=== PATIENT | male | born 1950 | race Hispanic/Latino ===

== ENCOUNTER 2017-06-01 14:07 | Outpatient (CLI) | payer MEDICARE ==
--- NOTE | 2017-06-01 16:57 | ULT ---
RENAL SONOGRAM: 06/01/17 HISTORY: Renal cyst. Followup. COMPARISON: 10/19/15. FINDINGS: On today's exam, the right kidney is 10.6 mm in length and contains a 1.4 cm cyst at the mid cortex. No hydronephrosis is evident. The urinary bladder is unremarkable. The left kidney is 10.2 cm in le ngth and has a normal appearance. IMPRESSION: Small right renal cyst has enlarged slightly since the prior study. No new abnormalities are apparen t. POS: JOSE
== END 2017-06-01 14:08 | disposition home or self-care (01) ==
LOC: ULT 14:07
PROVIDERS: ATTEND Urology
DX: N18.9 Chronic kidney disease, unspecified (principal); Q61.01 Congenital single renal cyst; N35.9 Urethral stricture, unspecified
CPT/HCPCS: 76770

== ENCOUNTER 2018-05-25 08:50 | Outpatient (CLI) | payer MEDICARE ==
[2018-05-25 10:12] LABS: Hemoglobin 11.7 g/dL (14.0-18.0); Mean Corpuscular HGB CONC 31.8 g/dL (32.0-36.0); Mean Corpuscular Hemoglobin 26.9 pg (27.0-31.0); Mean Corpuscular Volume 84.5 fL (78.0-98.0); Platelet Count 256 thou/uL (130-400); Red Blood Cell (RBC) Count 4.34 mill/uL (4.70-6.10)
[2018-05-25 10:19] LABS: Bilirubin Negative (Negative); Blood, Urine Negative (Negative); Clarity CLEAR (Clear); Glucose, Urine (Dipstick) 100 mg/dL (Negative); Leukocyte Negative (Negative); Nitrite Negative (Negative); Protein, Urine (Dipstick) 100 mg/dL (Neg-Trace); Prothrombin Time 13.7 SEC (12.0-14.7); Specific Gravity, Urine 1.016 (1.002-1.036); Urobilinogen 0.2 mg/dL (0.2-1.0)
[2018-05-25 10:20] LABS: PTT 35.5 SEC (22.9-36.1)
[2018-05-25 10:25] LABS: Bacteria/HPF None Seen HPF (None Seen); Hyaline Casts/LPF 0-3 HYALINE CAST LPF (0-3 Hyaline); Squamous Epithelial 0-3 HPF (0-3); WBC/HPF 0-3 HPF (0-3)
[2018-05-25 10:33] LABS: Anion Gap 11 mmol/L (10-20); BUN (Urea Nitrogen) 27 mg/dL (8.4-25.7); Calc. Creatinine Clearance 0 mL/min (70-130); Calcium 9.2 mg/dL (7.8-10.44); Carbon Dioxide 24 mmol/L (23-31); Chloride 107 mmol/L (98-107); Estimated GFR-MDRD 33; Glucose 141 mg/dL (80-115); Potassium 4.4 mmol/L (3.5-5.1); Sodium 138 mmol/L (136-145)
== END 2018-05-25 08:51 | disposition home or self-care (01) ==
LOC: LABBT 08:50
PROVIDERS: ATTEND Urology
DX: Z01.818 Encounter for other preprocedural examination (principal); N40.1 Benign prostatic hyperplasia with lower urinary tract symptoms; N39.9 Disorder of urinary system, unspecified
CPT/HCPCS: 80048; 81001; 85027; 85610; 85730; 87086; 93005; 93010

== ENCOUNTER 2018-06-06 05:36 | Observation (INO) | payer MEDICARE ==
[2018-05-25 09:07] VITALS: BMI 27.8
[2018-06-06] MEDS ORDERED: Fentanyl 100 MCG/2 ML VIAL ONE ×2 (06:38→09:24)
[2018-06-06] MEDS ORDERED: Levofloxacin 500 mg/D5W 100 ml Premix Bag ONE (06:41)
[2018-06-06] MEDS ORDERED: Ondansetron PF 4 MG/2 ML Vial ONE (08:11)
[2018-06-06] MEDS ORDERED: Lidocaine 1% PF 5 ML VIAL ONE (08:11)
[2018-06-06] MEDS ORDERED: ePHEDrine/0.9% NaCl/PF SYRINGE 50 mg/10 ml ONE (08:11)
[2018-06-06] MEDS ORDERED: Glycopyrrolate 0.2 MG/ML 5 ML SYRINGE ONE (08:11)
[2018-06-06] MEDS ORDERED: PROPOFOL 200 MG/20 ML VIAL ONE (08:11)
[2018-06-06] MEDS ORDERED: Dextrose 50% Abboject 50 ML SYRINGE SLOW IVP PRN (09:26)
[2018-06-06] MEDS ORDERED: diphenhydrAMINE 50 MG/ML VIAL IVP PRN (09:26)
[2018-06-06] MEDS ORDERED: Zolpidem Tartrate 5 MG TAB PO PRN (09:26)
[2018-06-06] MEDS ORDERED: HYDROcodone/Acetaminophen 5/325 mg Tablet PO PRN (09:26)
[2018-06-06] MEDS ORDERED: Oxybutynin 5 MG TAB PO PRN (09:26)
[2018-06-06] MEDS ORDERED: Insulin Regular 300 UNITS/3 ML VIAL SC PRN (09:26)
[2018-06-06] MEDS ORDERED: Acetaminophen 500 MG TAB PO PRN (09:26)
[2018-06-06] MEDS ORDERED: Mag-Al 1200 mg/1200 mg/30 ML UDCUP PO PRN (09:26)
[2018-06-06] MEDS ORDERED: hydrALAZINE 20 MG/ML VIAL SLOW IVP PRN ×2 (09:26)
[2018-06-06] MEDS ORDERED: Dextrose 5% in Water 1,000 ML IV PRN (09:26)
[2018-06-06] MEDS ORDERED: Sodium Chloride 0.9% 1,000 ML IV SCH (09:30)
[2018-06-06 09:56] LABS: #Eosinphils 0.4 thou/uL (0.0-0.7); #Lymphocytes 3.1 thou/uL (1.20-3.40); #Monocytes 0.8 thou/uL (0.11-0.59); #Neutrophils 5.3 thou/uL (1.40-6.50); %Basophils 0.4 % (0.0-1.0); %Eosinophils 3.8 % (0.0-10.0); %Lymphocytes 32.2 % (21.0-51.0); %Monocytes 8.7 % (0.0-10.0); %Neutrophils 54.9 % (42.0-75.0); Mean Corpuscular HGB CONC 30.7 g/dL (32.0-36.0); Mean Corpuscular Hemoglobin 26.1 pg (27.0-31.0); Mean Platelet Volume 7.3 fL (7.4-10.4); Platelet Count 302 thou/uL (130-400); RBC Distribution Width 12.1 % (11.5-14.5); Red Blood Cell (RBC) Count 4.22 mill/uL (4.70-6.10); White Blood Cell (WBC) Count 9.6 thou/uL (4.8-10.8)
[2018-06-06 10:16] LABS: Anion Gap 9 mmol/L (10-20); BUN (Urea Nitrogen) 26 mg/dL (8.4-25.7); Calc. Creatinine Clearance 46 mL/min (70-130); Calcium 8.3 mg/dL (7.8-10.44); Carbon Dioxide 25 mmol/L (23-31); Chloride 109 mmol/L (98-107); Estimated GFR-MDRD 37; Glucose 108 mg/dL (80-115); Potassium 4.5 mmol/L (3.5-5.1); Sodium 138 mmol/L (136-145)
[2018-06-06] MEDS ORDERED: HYDROmorphone 2 MG/ML VIAL ONE (10:58)
[2018-06-06] MEDS ORDERED: Morphine 4 MG/ML VIAL ONE (12:10)
--- NOTE | 2018-06-06 12:31 | OP ---
DATE OF PROCEDURE: 06/06/2018 PREOPERATIVE DIAGNOSES: A 67-year-old male with, 1. History of proximal penile stricture, approximately 14-16 Montenegrin caliber, wide caliber bulbar str icture. 2. Moderate benign prostatic hyperplasia, bilobar hyperplasia, high median bar. POSTOPERATIVE DIAGNOSES: A 67-year-old male with, 1. History of proximal penile stricture, approximately 14-16 Montenegrin caliber, wide caliber bulbar str icture. 2. Moderate benign prostatic hyperplasia, bilobar hyperplasia, high median bar. PROCEDURE: Cystoscopy, direct vision internal urethrotomy, transurethral resection of prostate. SURGEON: Keyla Sosa D.O. ANESTHESIA: General. IV FLUIDS: Approximately 1 liter. ESTIMATED BLOOD LOSS: Approximately 50 mL. SPECIMEN: TUR prostate. INDICATIONS FOR THE PROCEDURE AND HISTORY: Mr. Key is a 67-year-old male with history o f diabetes, coronary artery disease, BPH, urethral stricture. The patient presents today for DVIU, T URP. The patient is somewhat of a poor historian. I have been monitoring his peak flow PVR. A stag ing cystoscopy demonstrates recurrence of his urethral stricture with moderately obstructing prostate , he desired to proceed with TURP concomitantly with direct vision internal urethrotomy. Risks and c omplications of the procedure were reviewed with him in detail including, but not limited to, bleedin g, pain, infection, injury to adjacent organs, urosepsis. He has been fully informed regarding ureth ral stricture recurrence. I did discuss with him regarding options of urethroplasty. I did have binu e concerns as he tends to be noncompliant, as urethroplasty is a more involved procedure. He is in f ull understanding that his prostatic urethral stricture will likely recur; however, desired to procee d with DVIU with concomitant TURP. Cardiology clearance is in chart. He desired to proceed without reservation. Risks and complications including, but not limited to, bleeding, pain, infection, injur y to adjacent organs, urosepsis, recurrent nature of stricture disease, bladder neck contracture, junie t retention, incontinence, ureteral bladder injury reviewed. DESCRIPTION OF THE PROCEDURE: After an informed consent is signed, the patient is taken to the opera ting room, placed in a dorsal lithotomy position with the genital area prepped and draped in the usua l surgical sterile fashion. A bilateral KACI hose, SCDs, and broad-spectrum antibiotics were provided . A 21-Montenegrin cystoscope was utilized. We staged the urethral stricture with a rigid cystoscope, wh ich demonstrated again a soft-appearing proximal penile urethral stricture, approximately 14-16 Frenc h caliber. I was able to pass this with the cystoscope without significant issues. There is a wide caliber bulbar stricture not warranting treatment. It was passively dilated with passing the scope. The prostatic urethra was entered demonstrating moderately obstructing lateral lobes. His prostate is not significantly enlarged on a volume of approximately [address] He does, however, have a tight bladder neck and obstructing lateral lobes. The bladder was entered, which demonstrated normal bladder mucosa with significant bladder tumor, trabeculations, stones of concern. UOs were bilatera lly away from the bladder neck and kept out of harm's way throughout the procedure. At this time, we did transition to an [facility] DVIU scope with a cold knife. We released the proximal penile stricture a nd this released nicely with 1 swipe. At this time, a 26-Montenegrin continuous sheath resectoscope was p laced under direct visualization. I did dilate his meatus with Karen sounds to 30-Montenegrin without difficulty and the scope was able to be passed without significant issues under direct visualization . Using gyrus bipolar, we performed a transurethral resection of prostate in a classic Amy fasneo n. His prostate demonstrated changes consistent with chronic prostatitis. There were intermittent a reas of little microabscesses that were released with TUR of the prostate. He did have a very friabl e vascular prostate and we obtained hemostasis intermittently throughout the procedure. There was a prominent vessel in the anterior bladder neck, which we cauterized successfully with no subsequent bl eed. The bladder neck, at the end of the procedure was wide open with resolution of his laterally ob structing nodes. His left lateral lobe was somewhat too thin. Therefore, I did not further pursue t his area. All prostatic chips were evacuated with the Jennifer evacuator. We observed his prostatic ur ethra with no pressure and flow demonstrating no active bleeding. At this time, a 0.35 Super Stiff w camila was placed to the level of the bladder and a 22-Montenegrin three-way Gavin catheter was passed under guidewire assist. A 30 mL insufflated with sterile water attached to gravity bag and a slow CBI emmanuelle r output noted. He will be monitored overnight. If his urine output has remained clear, with CBI he ld tomorrow morning, I anticipate he will be discharged tomorrow morning with catheter to gravity bag .
[2018-06-06] MEDS: Gabapentin 300 MG CAP PO SCH ×2 (14:20→22:09)
[2018-06-06] MEDS: HYDROcodone/Acetaminophen 5/325 mg Tablet PO PRN (14:20)
[2018-06-06] MEDS: hydrALAZINE 25 MG TAB PO SCH ×2 (14:21→22:10)
[2018-06-06] MEDS ORDERED: Ondansetron PF 4 MG/2 ML Vial IVP PRN (14:44)
[2018-06-06] MEDS ORDERED: Promethazine HCl 25 MG in Sodium Chloride 0.9% 50 ML IVPB PRN (17:50)
[2018-06-06] MEDS: Dextrose 5 % And 0.9 % NaCl 1,000 ML IV SCH (18:16)
[2018-06-06] MEDS ORDERED: Insulin Glargine 48 UNITS in Pre-Filled Syringe 1 EACH SC SCH (21:00)
[2018-06-06] MEDS: Docusate 100 MG CAP PO SCH (22:09)
[2018-06-06] MEDS: Carvedilol 6.25 MG TAB PO SCH (22:09)
[2018-06-06] MEDS: Famotidine/PF 20 mg/2ml Vial SLOW IVP SCH (22:09)
[2018-06-07] MEDS: Dextrose 5 % And 0.9 % NaCl 1,000 ML IV SCH (02:57)
[2018-06-07 05:51] LABS: #Eosinphils 0.2 thou/uL (0.0-0.7); #Lymphocytes 3.3 thou/uL (1.20-3.40); #Monocytes 1.2 thou/uL (0.11-0.59); #Neutrophils 8.7 thou/uL (1.40-6.50); %Basophils 0.3 % (0.0-1.0); %Eosinophils 1.3 % (0.0-10.0); %Lymphocytes 24.9 % (21.0-51.0); %Monocytes 8.6 % (0.0-10.0); %Neutrophils 64.9 % (42.0-75.0); Hemoglobin 10.5 g/dL (14.0-18.0); Mean Corpuscular HGB CONC 31.4 g/dL (32.0-36.0); Mean Corpuscular Hemoglobin 26.7 pg (27.0-31.0); Mean Corpuscular Volume 85.1 fL (78.0-98.0); Mean Platelet Volume 7.6 fL (7.4-10.4); Platelet Count 287 thou/uL (130-400); RBC Distribution Width 12.2 % (11.5-14.5); Red Blood Cell (RBC) Count 3.95 mill/uL (4.70-6.10); White Blood Cell (WBC) Count 13.4 thou/uL (4.8-10.8)
[2018-06-07 06:23] LABS: Anion Gap 8 mmol/L (10-20); BUN (Urea Nitrogen) 21 mg/dL (8.4-25.7); Calc. Creatinine Clearance 42 mL/min (70-130); Calcium 8.3 mg/dL (7.8-10.44); Carbon Dioxide 25 mmol/L (23-31); Chloride 109 mmol/L (98-107); Estimated GFR-MDRD 33; Glucose 138 mg/dL (80-115); Potassium 4.1 mmol/L (3.5-5.1); Sodium 138 mmol/L (136-145)
[2018-06-07] MEDS ORDERED: Sodium Chloride 0.9% 1,000 ML IV SCH (08:00)
--- NOTE | 2018-06-07 08:11 | PRG ---
DATE OF SERVICE: 06/07/2018 SUBJECTIVE: The patient awake, denies nausea at this time, states that he is hungry. Last night he had an episode of emesis, was provided Zofran and Phenergan with no subsequent emesis. CBI was held this morning at 5. PHYSICAL EXAMINATION: VITAL SIGNS: Stable at 98, 72, 83, 93, 132/61. I's and O's yesterday had 850 mL of emesis. Urine o utput 2650. CBI held. GENITOURINARY: Urine output light red tinged, no clots. CBI flushed with immediate clearing. LABORATORY DATA: White blood cell count 13, hemoglobin 10.5, platelet 287. Renal function 21, creat inine 2.02, which is near his baseline. Pathology pending. IMPRESSION AND PLAN: A 67-year-old male with history of coronary artery disease, diabetes, benign pr ostatic hypertrophy, urethral stricture, postop day #1 status post DVIU, transurethral resection of p rostate. We will continue to hold the CBI today and monitor his urine output. As he has good bowel sounds, and no longer having nausea, will advance his diet as tolerated. Will change his fluids 0.9 normal saline at 80 mL to 100 mL an hour. We will recheck patient's status this afternoon. If urine output is relatively clear, tolerating regular diet, we will consider discharge this afternoon versu s ongoing observation if needed.
[2018-06-07] MEDS ORDERED: Lisinopril 10 MG TAB PO SCH (09:00)
[2018-06-07] MEDS ORDERED: Amlodipine 5 MG TAB PO SCH (09:00)
[2018-06-07] MEDS: Famotidine/PF 20 mg/2ml Vial SLOW IVP SCH (09:18)
[2018-06-07] MEDS: Carvedilol 6.25 MG TAB PO SCH (09:19)
[2018-06-07] MEDS: Docusate 100 MG CAP PO SCH (09:19)
[2018-06-07] MEDS: Gabapentin 300 MG CAP PO SCH ×2 (09:20→14:36)
[2018-06-07] MEDS: hydrALAZINE 25 MG TAB PO SCH ×2 (09:20→16:38)
[2018-06-07] MEDS: HYDROcodone/Acetaminophen 5/325 mg Tablet PO PRN (09:21)
[2018-06-07] MEDS ORDERED: cefTRIAXone\\ROCEPHIN 1 GM in Sodium Chloride 0.9% 100 ML IVPB SCH (10:00)
[2018-06-07 15:22] VITALS: BP 96/54; TEMP 98
--- NOTE | 2018-06-08 01:21 | DIS ---
DATE OF SERVICE: 06/07/2018 DATE OF ADMISSION: 06/06/2018 DATE OF DISCHARGE: 06/07/2018 DISPOSITION: To home to selfcare. DISCHARGE CONDITION: Stable. DISPOSITION: Discharged to home. DISCHARGE MEDICATIONS: [place] 5/325 #40 one to two p.o. q.6 to 8 hours p.r.n., ciprofloxacin until followup appointment 1 p.o. b.i.d., Colace 100 mg 1 p.o. b.i.d. p.r.n. Patient is to resume all his home medications except his baby aspirin. DISCHARGE INSTRUCTIONS: He is instructed that if his urine output remains clear and remains clear until Monday, may resume his baby aspirin on Monday. Instructed to continue to hold aspirin if there is evidence of hematuria of concern. BRIEF HOSPITAL COURSE: Mr. Key is a 67-year-old male with history of diabetes and hypertension, who underwent cystoscopy, direct vision internal urethrotomy, transurethral resection of prostate. Surgery was uneventful. His CBI was held this morning with red-tinged urine. He was monitored throughout the day with ambulation, his urine output is clear to klever pink tinged. We did keep him n.p.o. over last night, as he had some emesis. This has resolved and this morning, he is tolerating regular diet with no evidence of nausea, emesis, and passing flatus. He remained stable for discharge. His Gavin catheter was transitioned to a leg bag. CBI port is plugged. Instructions provided. Urology appointment next at 11:30 a.m. for catheter removal. SHEILA
[2018-06-08] MEDS ORDERED: Famotidine/PF 20 mg/2ml Vial SLOW IVP SCH (09:00)
== END 2018-06-07 18:20 | disposition home or self-care (01) ==
LOC: SDC 05:36 → SURG A 11:44
PROVIDERS: ADMIT Urology; ATTEND Urology
PROC: 0VB08ZZ Excision of Prostate, Via Natural or Artificial Opening Endoscopic (ICD-10-PCS; principal; 2018-06-06)
DX: N40.1 Benign prostatic hyperplasia with lower urinary tract symptoms (principal); I25.10 Atherosclerotic heart disease of native coronary artery without angina pectoris; E11.9 Type 2 diabetes mellitus without complications; Z79.82 Long term (current) use of aspirin; Z79.4 Long term (current) use of insulin; Z79.899 Other long term (current) drug therapy
CPT/HCPCS: 52601; 80048 ×2; 82962 ×2; 85025 ×2; 86850; 86900; 86901; 88305; 96361 ×2; 96365; 96375 ×2; 96376; C1769; G0378; 36415; 36416; 96374; J0360; J0696; J1170; J1815; J1956; J2001; J2270; J2405; J2550; J2704; J3010; J7050; S0028

== ENCOUNTER 2019-03-06 08:48 | Outpatient (CLI) | payer MEDICARE ==
--- NOTE | 2019-03-06 09:14 | SJPRAD ---
CERVICAL SPINE 3 VIEWS: HISTORY: Cervicalgia FINDINGS: Degenerative changes are present. No fracture, subluxation or bony destruction is identifie d. IMPRESSION: Cervical spondylosis
== END 2019-03-06 08:49 | disposition home or self-care (01) ==
LOC: MWLC RAD 08:48
PROVIDERS: ATTEND Family Medicine
DX: M54.2 Cervicalgia (principal); M47.812 Spondylosis without myelopathy or radiculopathy, cervical region

== ENCOUNTER 2019-03-13 12:01 | Outpatient (CLI) | payer MEDICARE ==
--- NOTE | 2019-03-13 13:28 | CT ---
CT CHEST WITHOUT CONTRAST: DATE: 03/13/2019. PROVIDED CLINICAL HISTORY: Tobacco abuse, low-dose screening. FINDINGS: Comparison is made with the study dated 12/09/2014. The heart, pericardium, and great vessels are suboptimally evaluated in the absence of IV contrast bu t demonstrate vascular calcification including coronary calcium. There is no evidence for thoracic l ymph node enlargement with limitations due to lack of IV Contrast. There is trace bilateral pleural fluid. Evaluation of the lung bases is limited due to patient respiratory motion. Given this limitation, no concerning pulmonary parenchymal opacity is evident. There is bronchial wall thickening involving the lower lobes, right greater than left. The visualized portions of the upper abdomen appear grossly unremarkable. The osseous structures dem onstrate no concerning lytic or blastic lesions. IMPRESSION: 1. Lung rads category 1 - negative. Continue annual screening. 2. Trace bilateral pleural fluid, atherosclerosis including coronary calcium and nonspecific bilater al lobe bronchial wall thickening. POS: TPC
== END 2019-03-13 12:02 | disposition home or self-care (01) ==
LOC: CT 12:01
PROVIDERS: ATTEND Family Medicine
DX: Z87.891 Personal history of nicotine dependence (principal)
CPT/HCPCS: G0297

== ENCOUNTER 2019-03-19 08:34 | Outpatient (CLI) | payer MEDICARE ==
--- NOTE | 2019-03-19 12:54 | ULT ---
ULTRASOUND ABDOMINAL AORTA: 03/19/19 HISTORY: Screening for abdominal aortic aneurysm. FINDINGS: The aortic measurements are as follows: Proximal aorta: 2.8 cm. Mid aorta: 1.8 cm. Distal aorta: 1.8 cm. IMPRESSION: No evidence of abdominal aortic aneurysm. POS: OFF
== END 2019-03-19 08:35 | disposition home or self-care (01) ==
LOC: ULT 08:34
PROVIDERS: ATTEND Family Medicine
DX: Z13.6 Encounter for screening for cardiovascular disorders (principal)
CPT/HCPCS: 76775

== ENCOUNTER 2019-07-05 13:26 | Emergency (ER) | payer MEDICARE ==
--- NOTE | 2019-07-05 15:11 | RAD ---
PA CHEST: HISTORY: Cough. FINDINGS: Lung rebollar are clear of infiltrate. Heart and mediastinum appear normal. Vasculature normal. IMPRESSION: No acute process. POS: H
[2019-07-05 15:27] LABS: #Basophils 0.1 thou/uL (0.0-0.2); #Eosinphils 0.5 thou/uL (0.0-0.7); #Lymphocytes 3.6 thou/uL (1.20-3.40); #Monocytes 1.4 thou/uL (0.11-0.59); #Neutrophils 10.4 thou/uL (1.40-6.50); %Basophils 0.5 % (0.0-1.0); %Lymphocytes 22.5 % (21.0-51.0); %Monocytes 8.5 % (0.0-10.0); %Neutrophils 65.6 % (42.0-75.0); Hemoglobin 8.4 g/dL (14.0-18.0); Mean Corpuscular HGB CONC 29.5 g/dL (32.0-36.0); Mean Corpuscular Hemoglobin 20.4 pg (27.0-31.0); Mean Corpuscular Volume 69.2 fL (78.0-98.0); Platelet Count 389 thou/uL (130-400); RBC Distribution Width 15.8 % (11.5-14.5); Red Blood Cell (RBC) Count 4.12 mill/uL (4.70-6.10); White Blood Cell (WBC) Count 15.9 thou/uL (4.8-10.8)
[2019-07-05 15:45] LABS: ALT (SGPT) 8 U/L (8-55); AST (SGOT) 11 U/L (5-34); Albumin 3.6 g/dL (3.4-4.8); Alkaline Phosphatase 77 U/L (40-110); Anion Gap 11 mmol/L (10-20); BUN (Urea Nitrogen) 23 mg/dL (8.4-25.7); Bilirubin, Total 0.2 mg/dL (0.2-1.2); Calc. Creatinine Clearance 0 mL/min (70-130); Calcium 8.9 mg/dL (7.8-10.44); Carbon Dioxide 27 mmol/L (23-31); Chloride 104 mmol/L (98-107); Estimated GFR-MDRD 26; Globulin 3.5 g/dL (2.4-3.5); Glucose 195 mg/dL (80-115); Potassium 4.4 mmol/L (3.5-5.1); Protein, Total 7.1 g/dL (5.8-8.1); Sodium 138 mmol/L (136-145)
[2019-07-05 15:49] LABS: Hypochromia SLIGHT = 6-15 cells (100X) (0-5/hpf); MDiff Complete? YES; Microcytosis MODERATE=15-30 cells (100X) (0-5/hpf); Ovalocytes SLIGHT = 2-5 cells (100X) (0-1/hpf); Platelet Morphology Comment Appears Adequate; Polychromasia SLIGHT = 2-3 cells (100X) (0-2/hpf); Schistocytes SLIGHT = 2-5 cells (100X) (0-1/hpf); Target Cells SLIGHT = 2-5 cells (100X) (0-1/hpf); Tear Drops SLIGHT = 2-5 cells (100X) (0-1/hpf)
[2019-07-05] MEDS ORDERED: Sodium Chloride 0.9% 100 ML ONE (18:03)
[2019-07-05] MEDS ORDERED: cefTRIAXone\\ROCEPHIN 2 GM VIAL ONE (18:03)
== END 2019-07-05 19:50 | disposition home or self-care (01) ==
LOC: ERS 13:26
DX: J20.8 Acute bronchitis due to other specified organisms (principal); R04.2 Hemoptysis; B96.89 Other specified bacterial agents as the cause of diseases classified elsewhere; E11.9 Type 2 diabetes mellitus without complications; Z79.4 Long term (current) use of insulin
CPT/HCPCS: 36415; 71045; 80053; 82274; 83880; 84484; 85025; 87804; 93005; 96365; J0696; J3490

== ENCOUNTER 2019-07-10 10:46 | Outpatient (CLI) | payer MEDICARE ==
--- NOTE | 2019-07-10 11:25 | RAD ---
Exam: 3 view sinuses HISTORY: Frontal sinusitis right-sided. FINDINGS: Visualized calvarium and maxillofacial bones are unremarkable Symmetric aeration of the paranasal sinuses and mastoid air cells IMPRESSION: No radiographic evidence of significant frontal sinus opacification. CT if clinically warranted
== END 2019-07-10 10:47 | disposition home or self-care (01) ==
LOC: BICRAD 10:46
PROVIDERS: ATTEND Internal Medicine
DX: J32.1 Chronic frontal sinusitis (principal)
CPT/HCPCS: 70220

== ENCOUNTER 2019-08-23 11:41 | Outpatient (CLI) | payer MEDICARE ==
--- NOTE | 2019-08-23 11:55 | RAD ---
EXAM: Chest PA and lateral: HISTORY: Cough COMPARISON: 07/05/2019 FINDINGS: Heart: Normal cardiac silhouette Aorta: Atherosclerosis of the aortic knob Pulmonary vessels: Normal Costophrenic angles: Costophrenic angles are clear. Lungs: No masses or consolidation. Chronic lung parenchymal changes. Pneumothorax: No pneumothorax Osseous structures: No osseous abnormalities IMPRESSION: No acute cardiopulmonary process.
== END 2019-08-23 11:42 | disposition home or self-care (01) ==
LOC: BICRAD 11:41
PROVIDERS: ATTEND Internal Medicine
DX: R05 Cough (principal)
CPT/HCPCS: 71046

== ENCOUNTER 2021-08-06 09:36 | Emergency (ER) | payer MEDICARE ==
[2021-08-06] MEDS ORDERED: Dextrose 50% Abboject 50 ML SYRINGE ONE (09:58)
[2021-08-06 11:03] LABS: #Eosinphils 0.6 thou/uL (0.0-0.7); #Lymphocytes 1.7 thou/uL (1.20-3.40); #Monocytes 1.1 thou/uL (0.11-0.59); #Neutrophils 8.2 thou/uL (1.40-6.50); %Basophils 0.1 % (0.0-1.0); %Eosinophils 5.3 % (0.0-10.0); %Lymphocytes 14.8 % (21.0-51.0); %Monocytes 9.4 % (0.0-10.0); %Neutrophils 70.5 % (42.0-75.0); Hemoglobin 10.6 g/dL (14.0-18.0); Mean Corpuscular HGB CONC 32.3 g/dL (32.0-36.0); Mean Corpuscular Hemoglobin 27.5 pg (27.0-31.0); Mean Corpuscular Volume 85.3 fL (78.0-98.0); Mean Platelet Volume 7.7 fL (7.4-10.4); Platelet Count 228 thou/uL (130-400); RBC Distribution Width 12.1 % (11.5-14.5); Red Blood Cell (RBC) Count 3.86 mill/uL (4.70-6.10); White Blood Cell (WBC) Count 11.6 thou/uL (4.8-10.8)
[2021-08-06 11:13] LABS: ALT (SGPT) Less than 7 U/L (8-55); AST (SGOT) 9 U/L (5-34); Albumin 3.1 g/dL (3.4-4.8); Alkaline Phosphatase 59 U/L (40-110); Anion Gap 13 mmol/L (10-20); BUN (Urea Nitrogen) 48 mg/dL (8.4-25.7); Bilirubin, Total 0.3 mg/dL (0.2-1.2); Calc. Creatinine Clearance 0 mL/min (70-130); Carbon Dioxide 24 mmol/L (23-31); Chloride 106 mmol/L (98-107); Glucose 94 mg/dL (83-110); Protein, Total 6.1 g/dL (5.8-8.1); Sodium 139 mmol/L (136-145)
== END 2021-08-06 11:36 | disposition home or self-care (01) ==
LOC: ERS 09:36
DX: E11.649 Type 2 diabetes mellitus with hypoglycemia without coma (principal); I10 Essential (primary) hypertension; Z79.4 Long term (current) use of insulin
CPT/HCPCS: 36415; 36416; 80053; 85025; 96374

== ENCOUNTER 2021-08-09 10:19 | Outpatient (CLI) | payer MEDICARE | END 2021-08-09 10:20 | disposition home or self-care (01) | LOC: BICULT 10:19 | PROVIDERS: ATTEND Internal Medicine Nephrology | DX: N18.5 Chronic kidney disease, stage 5 (principal); N28.9 Disorder of kidney and ureter, unspecified | CPT/HCPCS: 36415; 76770; 80048; 83970; 84100; 85025 ==

== ENCOUNTER 2022-09-17 00:31 | Inpatient (IN) | payer MEDICARE ==
[2022-09-17] MEDS ORDERED: Ondansetron PF 4 MG/2 ML Vial ONE (00:59)
[2022-09-17 01:02] LABS: #Eosinphils 0.5 thou/uL (0.0-0.7); #Lymphocytes 1.8 thou/uL (1.20-3.40); #Monocytes 0.6 thou/uL (0.11-0.59); #Neutrophils 10.3 thou/uL (1.40-6.50); %Basophils 0.2 % (0.0-1.0); %Eosinophils 3.8 % (0.0-10.0); %Lymphocytes 13.7 % (21.0-51.0); %Monocytes 4.3 % (0.0-10.0); %Neutrophils 77.9 % (42.0-75.0); Hemoglobin 12.5 g/dL (14.0-18.0); Mean Corpuscular Hemoglobin 28.2 pg (27.0-31.0); Mean Corpuscular Volume 88.1 fl (78.0-98.0); Mean Platelet Volume 8.1 fL (7.4-10.4); Platelet Count 205 10x3/uL (130-400); RBC Distribution Width 13.2 % (11.5-14.5); Red Blood Cell (RBC) Count 4.44 mill/uL (4.70-6.10); White Blood Cell (WBC) Count 13.2 10x3/uL (4.8-10.8)
[2022-09-17 01:26] LABS: ALT (SGPT) 10 U/L (8-55); AST (SGOT) 12 U/L (5-34); Albumin 3.4 g/dL (3.4-4.8); Alkaline Phosphatase 101 U/L (40-110); Anion Gap 15 mmol/L (10-20); BUN (Urea Nitrogen) 54 mg/dL (8.4-25.7); Bilirubin, Total 0.4 mg/dL (0.2-1.2); Calc. Creatinine Clearance 0 mL/min (70-130); Calcium 8.7 mg/dL (7.8-10.44); Carbon Dioxide 24 mmol/L (23-31); Chloride 102 mmol/L (98-107); Estimated GFR 8; Globulin 3.6 g/dL (2.4-3.5); Glucose 220 mg/dL (83-110); Lipase 109 U/L (8-78); Potassium 4.1 mmol/L (3.5-5.1); Sodium 137 mmol/L (136-145)
[2022-09-17 01:52] LABS: RBC Count-Automated (BF) 0 /cu.mm; WBC/Nucleated-Auto (BF) 1971 /cu.mm
[2022-09-17 03:06] LABS: Body Fluid Source Peritoneal Fluid; Clarity Hazy (Clear); Tube # EDTA
[2022-09-17 03:07] LABS: BF Color Colorless
[2022-09-17 03:11] LABS: BF Segmented Neutrophils 100 %
[2022-09-17] MEDS ORDERED: Piperacillin/Tazobactam 4.5 GM in Sodium Chloride 0.9% 100 ML IVPB SCH (03:45)
[2022-09-17] MEDS ORDERED: VANCOMYCIN 1.75 GM/500 ML BAG 1.75 GM in Premix Bag 1 BAG IVPB SCH (03:45)
[2022-09-17 06:40] VITALS: BMI 28.8
[2022-09-17] MEDS ORDERED: Piperacillin/Tazobactam 3.375 GM in Sodium Chloride 0.9% 100 ML IVPB SCH ×2 (08:00→21:00)
[2022-09-17] MEDS ORDERED: Dextrose 50% Abboject 50 ML SYRINGE SLOW IVP PRN (11:37)
[2022-09-17] MEDS ORDERED: HumaLOG 300 UNITS/3 ML VIAL SC PRN (11:37)
[2022-09-17] MEDS: Morphine 2 MG/ML VIAL SLOW IVP PRN ×3 (12:45→20:22)
[2022-09-17] MEDS ORDERED: Iopamidol-370 76% 500 ML 1 ML ONE (14:13)
[2022-09-17] MEDS ORDERED: GASTROGRAFIN 30 ML BOT ONE (14:13)
[2022-09-17] MEDS ORDERED: FLU VACC QS2022-23(65YR UP)/PF 240 MCG/0.7 ML SYRINGE IM ONE (18:00)
[2022-09-17] MEDS ORDERED: Dextrose 5 % And 0.9 % NaCl 1,000 ML IV SCH (20:00)
[2022-09-17] MEDS: Dextrose 5% in Water 1,000 ML IV PRN ×2 (20:24→20:55)
[2022-09-17] MEDS: Piperacillin/Tazobactam 3.375 GM in Sodium Chloride 0.9% 100 ML IVPB SCH (20:55)
[2022-09-17 22:35] LABS: HBSAg Index 0.32 S/CO (0-0.99); Hep B Surf Ag Non-Reactive S/CO (NonReactive)
[2022-09-17 23:16] LABS: HBSAB Concentration 6211.57 mIU/mL; Hep B Surf AB Reactive (NonReactive)
[2022-09-18] MEDS: Morphine 2 MG/ML VIAL SLOW IVP PRN (00:57)
[2022-09-18] MEDS ORDERED: Non-Formulary Item 1 EACH (Cholecalciferol (Vitamin D3) [Vitamin D3] 1000 UNIT Capsule) BC SCH (07:30)
[2022-09-18] MEDS ORDERED: Cholecalciferol 1,000 UNITS (25 MCG) TAB PO PRN (07:33)
[2022-09-18 08:30] LABS: #Eosinphils 0.5 thou/uL (0.0-0.7); #Lymphocytes 1.8 thou/uL (1.20-3.40); #Monocytes 1.1 thou/uL (0.11-0.59); #Neutrophils 9.5 thou/uL (1.40-6.50); %Basophils 0.2 % (0.0-1.0); %Eosinophils 3.7 % (0.0-10.0); %Lymphocytes 14.2 % (21.0-51.0); %Monocytes 8.2 % (0.0-10.0); %Neutrophils 73.6 % (42.0-75.0); Hemoglobin 10.2 g/dL (14.0-18.0); Mean Corpuscular HGB CONC 32.1 g/dL (32.0-36.0); Mean Corpuscular Hemoglobin 28.7 pg (27.0-31.0); Mean Corpuscular Volume 89.4 fl (78.0-98.0); Mean Platelet Volume 8.3 fL (7.4-10.4); Platelet Count 148 10x3/uL (130-400); RBC Distribution Width 13.3 % (11.5-14.5); Red Blood Cell (RBC) Count 3.57 mill/uL (4.70-6.10); White Blood Cell (WBC) Count 12.9 10x3/uL (4.8-10.8)
[2022-09-18 08:45] LABS: ALT (SGPT) 8 U/L (8-55); AST (SGOT) 10 U/L (5-34); Albumin 2.7 g/dL (3.4-4.8); Alkaline Phosphatase 41 U/L (40-110); Anion Gap 13 mmol/L (10-20); BUN (Urea Nitrogen) 46 mg/dL (8.4-25.7); Bilirubin, Total 0.5 mg/dL (0.2-1.2); Calc. Creatinine Clearance 12 mL/min (70-130); Calcium 7.8 mg/dL (7.8-10.44); Carbon Dioxide 22 mmol/L (23-31); Chloride 105 mmol/L (98-107); Estimated GFR 8; Globulin 2.8 g/dL (2.4-3.5); Glucose 167 mg/dL (83-110); Potassium 3.8 mmol/L (3.5-5.1); Protein, Total 5.5 g/dL (5.8-8.1); Sodium 136 mmol/L (136-145)
[2022-09-18] MEDS: Piperacillin/Tazobactam 3.375 GM in Sodium Chloride 0.9% 100 ML IVPB SCH ×2 (08:46→22:08)
[2022-09-18] MEDS: Carvedilol 25 MG TAB PO SCH ×3 (08:46→22:20)
[2022-09-18] MEDS: Aspirin Chewable 81 MG TAB PO SCH (08:46)
[2022-09-18] MEDS: Ferrous Sulfate 325 MG TAB PO SCH (08:47)
[2022-09-18] MEDS ORDERED: Losartan 25 MG TAB PO SCH ×3 (09:00→13:30)
[2022-09-18] MEDS ORDERED: Pravastatin Sodium 20 MG TAB PO SCH (09:00)
[2022-09-18] MEDS ORDERED: Non-Formulary Item 1 EACH (Omeprazole [Omeprazole] 20 MG Capsule.Dr) PO SCH (09:00)
[2022-09-18] MEDS ORDERED: Aspirin Chewable 81 MG TAB PO SCH (09:00)
[2022-09-18] MEDS ORDERED: Non-Formulary Item 1 EACH (Ferrous Sulfate [Ferosul] 325 MG Tablet) PO SCH (09:00)
[2022-09-18] MEDS ORDERED: cloNIDine 0.1 MG TAB PO SCH ×3 (09:00→13:15)
[2022-09-18] MEDS ORDERED: Non-Formulary Item 1 EACH (Pioglitazone Hcl [Pioglitazone Hcl] 30 MG Tablet) PO SCH (09:00)
[2022-09-18] MEDS ORDERED: Pioglitazone HCl 45 MG TAB PO SCH (09:00)
[2022-09-18] MEDS ORDERED: Non-Formulary Item 1 EACH (Lactulose [Lactulose] 10 GM Packet) PO SCH (09:00)
[2022-09-18] MEDS ORDERED: Carvedilol 6.25 MG TAB PO SCH (09:00)
[2022-09-18 09:13] LABS: Vancomycin, Trough 21.2 ug/mL
[2022-09-18] MEDS ORDERED: Senokot 8.6 MG TAB PO PRN (09:59)
[2022-09-18] MEDS ORDERED: Heparin 10,000 UNITS/ 10 ML VIAL ONE (10:19)
[2022-09-18] MEDS ORDERED: Polyethylene Glycol 3350 17 GM Packet PO SCH (10:32)
[2022-09-18] MEDS: HumaLOG 300 UNITS/3 ML VIAL SC PRN (11:44)
[2022-09-18] MEDS ORDERED: Vancomycin Dose by Levels Sliding Scale (Wt 71-99) FS SCH (13:45)
[2022-09-18] MEDS: Heparin 5,000 UNITS/ML VIAL SC SCH (22:08)
[2022-09-18] MEDS: Simvastatin 10 MG TAB PO SCH (22:20)
[2022-09-19 05:36] LABS: Bacteria/HPF None Seen HPF (None Seen); Bilirubin Negative (Negative); Blood, Urine 1+ (Negative); CAUTI Indications for Culture Dysuria,urgency,freq; Clarity Clear (Clear); Glucose, Urine (Dipstick) >=1000 mg/dL (Negative); Ketone, Urine Negative (Negative); Leukocyte Negative Leu/uL (Negative); Nitrite Negative (Negative); Protein, Urine (Dipstick) 100 mg/dL (Neg-Trace); RBC/HPF 0-3 HPF (0-3); Specific Gravity, Urine 1.014 (1.002-1.036); Squamous Epithelial 0-3 HPF (0-3); Urobilinogen Normal mg/dL (Less than 2); WBC/HPF 0-3 HPF (0-3)
[2022-09-19 05:53] LABS: Urine Culture Reflex No No
[2022-09-19] MEDS ORDERED: Polyethylene Glycol 3350 17 GM Packet PO SCH (09:00)
[2022-09-19] MEDS ORDERED: Losartan 25 MG TAB PO SCH (09:00)
[2022-09-19] MEDS: Heparin 5,000 UNITS/ML VIAL SC SCH ×2 (10:30→20:53)
[2022-09-19] MEDS: Piperacillin/Tazobactam 3.375 GM in Sodium Chloride 0.9% 100 ML IVPB SCH ×2 (10:30→20:50)
[2022-09-19] MEDS: Ferrous Sulfate 325 MG TAB PO SCH (10:35)
[2022-09-19] MEDS: cloNIDine 0.1 MG TAB PO SCH (10:36)
[2022-09-19] MEDS: Aspirin Chewable 81 MG TAB PO SCH (10:36)
[2022-09-19] MEDS: Carvedilol 25 MG TAB PO SCH ×2 (10:36→20:52)
[2022-09-19 10:47] LABS: Vancomycin, Random 16.2 ug/mL (See Comment)
[2022-09-19] MEDS ORDERED: Vancomycin HCl 500 MG in Sodium Chloride 0.9% 100 ML IVPB SCH (11:15)
[2022-09-19] MEDS: HumaLOG 300 UNITS/3 ML VIAL SC PRN (16:18)
[2022-09-19] MEDS ORDERED: NIFEdipine XL 30 MG TAB PO SCH (20:00)
[2022-09-19] MEDS: Losartan 25 MG TAB PO SCH (20:52)
[2022-09-19] MEDS: Polyethylene Glycol 3350 17 GM Packet PO SCH (20:53)
[2022-09-19] MEDS: Simvastatin 10 MG TAB PO SCH (20:53)
[2022-09-20] MEDS: HumaLOG 300 UNITS/3 ML VIAL SC PRN ×2 (06:37→12:36)
[2022-09-20] MEDS: Heparin 5,000 UNITS/ML VIAL SC SCH (08:28)
[2022-09-20] MEDS: Carvedilol 25 MG TAB PO SCH (08:29)
[2022-09-20] MEDS: Polyethylene Glycol 3350 17 GM Packet PO SCH (08:29)
[2022-09-20] MEDS: Ferrous Sulfate 325 MG TAB PO SCH (08:29)
[2022-09-20] MEDS: Piperacillin/Tazobactam 3.375 GM in Sodium Chloride 0.9% 100 ML IVPB SCH (08:29)
[2022-09-20] MEDS: Aspirin Chewable 81 MG TAB PO SCH (08:29)
[2022-09-20] MEDS: Losartan 25 MG TAB PO SCH (08:29)
[2022-09-20] MEDS: cloNIDine 0.1 MG TAB PO SCH (08:29)
[2022-09-20] MEDS ORDERED: NIFEdipine XL 30 MG TAB PO SCH (09:00)
[2022-09-20 12:24] VITALS: BP 138/72; TEMP 98
== END 2022-09-20 14:40 | disposition home or self-care (01) | DRG 919 ==
LOC: ERS 00:31 → SURG A 06:14
PROVIDERS: ADMIT Student in an Organized Health Care Education/Training Program; ATTEND Hospitalist
PROC: 5A1D70Z Performance of Urinary Filtration, Intermittent, Less than 6 Hours Per Day (ICD-10-PCS; principal; 2022-09-17)
PROC: 3E03329 Introduction of Other Anti-infective into Peripheral Vein, Percutaneous Approach (ICD-10-PCS; 2022-09-17)
DX: T85.71XA Infection and inflammatory reaction due to peritoneal dialysis catheter, initial encounter (principal); A41.9 Sepsis, unspecified organism; K65.2 Spontaneous bacterial peritonitis; N18.6 End stage renal disease; I12.0 Hypertensive chronic kidney disease with stage 5 chronic kidney disease or end stage renal disease; I25.10 Atherosclerotic heart disease of native coronary artery without angina pectoris; E78.5 Hyperlipidemia, unspecified; Y84.1 Kidney dialysis as the cause of abnormal reaction of the patient, or of later complication, without mention of misadventure at the time of the procedure; E11.65 Type 2 diabetes mellitus with hyperglycemia; D63.1 Anemia in chronic kidney disease; E11.22 Type 2 diabetes mellitus with diabetic chronic kidney disease; N30.90 Cystitis, unspecified without hematuria; Z79.4 Long term (current) use of insulin; Z99.2 Dependence on renal dialysis; Z79.84 Long term (current) use of oral hypoglycemic drugs; Z79.899 Other long term (current) drug therapy; Z95.5 Presence of coronary angioplasty implant and graft
CPT/HCPCS: 36415; 36416; 71045; 74177; 80053; 80202; 81001; 83690; 84484; 85025; 85060; 86706; 87040; 87070; 87205; 87340; 89051; 90945; 93005; 96374; 96375; G0257; J1644; J1815; J2272; J2405; J2543; J3370; J3490; J7042; J7070; Q9963; Q9967

== ENCOUNTER 2023-08-12 16:03 | Emergency (ER) | payer MEDICARE ==
[2023-08-12 17:30] LABS: SARS-CoV-2 NAA Rapid Test DETECTED (NotDetected)
[2023-08-12 17:31] LABS: #Eosinphils 0.1 thou/uL (0.0-0.7); #Monocytes 0.8 thou/uL (0.11-0.59); #Neutrophils 8.6 thou/uL (1.40-6.50); %Basophils 0.4 % (0.0-1.0); %Eosinophils 0.6 % (0.0-10.0); %Monocytes 7.3 % (0.0-10.0); Hematocrit 39.7 % (42.0-52.0); Hemoglobin 12.6 g/dL (14.0-18.0); Mean Corpuscular HGB CONC 31.7 g/dL (32.0-36.0); Mean Corpuscular Hemoglobin 29.1 pg (27.0-31.0); Mean Corpuscular Volume 91.7 fl (78.0-98.0); Mean Platelet Volume 9.8 fL (7.4-10.4); Platelet Count 247 10x3/uL (130-400); RBC Distribution Width 14.5 % (11.5-14.5); Red Blood Cell (RBC) Count 4.33 mill/uL (4.70-6.10); White Blood Cell (WBC) Count 10.5 10x3/uL (4.8-10.8)
[2023-08-12 18:00] LABS: ALT (SGPT) 21 U/L (8-55); AST (SGOT) 19 U/L (5-34); Albumin 3.4 g/dL (3.4-4.8); Alkaline Phosphatase 76 U/L (40-110); Anion Gap 17 mmol/L (10-20); BUN (Urea Nitrogen) 44 mg/dL (8.4-25.7); Bilirubin, Total 0.6 mg/dL (0.2-1.2); Calc. Creatinine Clearance 0 mL/min (70-130); Calcium 8.4 mg/dL (7.8-10.44); Carbon Dioxide 23 mmol/L (23-31); Chloride 98 mmol/L (98-107); Estimated GFR 6; Globulin 3.3 g/dL (2.4-3.5); Glucose 269 mg/dL (83-110); Lipase 100 U/L (8-78); Potassium 4.6 mmol/L (3.5-5.1); Protein, Total 6.7 g/dL (5.8-8.1); Sodium 133 mmol/L (136-145)
[2023-08-12 18:01] LABS: Troponin I 0.051 ng/mL (< 0.028)
== END 2023-08-12 19:11 | disposition home or self-care (01) ==
LOC: ERS 16:03
DX: U07.1 COVID-19 (principal); J11.1 Influenza due to unidentified influenza virus with other respiratory manifestations; I12.9 Hypertensive chronic kidney disease with stage 1 through stage 4 chronic kidney disease, or unspecified chronic kidney disease; E11.22 Type 2 diabetes mellitus with diabetic chronic kidney disease; N18.9 Chronic kidney disease, unspecified; Z79.4 Long term (current) use of insulin; Z99.2 Dependence on renal dialysis; Z79.899 Other long term (current) drug therapy
CPT/HCPCS: 0240U; 71045; 80053; 83690; 84484; 85025; 93005; 36415

== ENCOUNTER 2023-09-29 08:14 | Emergency (ER) | payer MEDICARE ==
[2023-09-29 09:22] LABS: #Basophils 0.1 thou/uL (0.0-0.2); #Eosinphils 0.2 thou/uL (0.0-0.7); #Monocytes 0.9 thou/uL (0.11-0.59); #Neutrophils 10.1 thou/uL (1.40-6.50); %Basophils 0.6 % (0.0-1.0); %Eosinophils 1.7 % (0.0-10.0); %Lymphocytes 15.8 % (21.0-51.0); %Monocytes 6.7 % (0.0-10.0); %Neutrophils 74.7 % (42.0-75.0); Hematocrit 35.7 % (42.0-52.0); Hemoglobin 11.1 g/dL (14.0-18.0); Mean Corpuscular HGB CONC 31.1 g/dL (32.0-36.0); Mean Corpuscular Hemoglobin 30.9 pg (27.0-31.0); Mean Corpuscular Volume 99.4 fl (78.0-98.0); Mean Platelet Volume 9.7 fL (7.4-10.4); Platelet Count 204 10x3/uL (130-400); RBC Distribution Width 16.6 % (11.5-14.5); Red Blood Cell (RBC) Count 3.59 mill/uL (4.70-6.10); White Blood Cell (WBC) Count 13.6 10x3/uL (4.8-10.8)
[2023-09-29 09:40] LABS: ALT (SGPT) 11 U/L (8-55); AST (SGOT) 13 U/L (5-34); Albumin 3.1 g/dL (3.4-4.8); Alkaline Phosphatase 95 U/L (40-110); Anion Gap 18 mmol/L (10-20); BUN (Urea Nitrogen) 55 mg/dL (8.4-25.7); Bilirubin, Total 0.3 mg/dL (0.2-1.2); Calc. Creatinine Clearance 0 mL/min (70-130); Carbon Dioxide 26 mmol/L (23-31); Chloride 97 mmol/L (98-107); Estimated GFR 4; Globulin 2.8 g/dL (2.4-3.5); Glucose 103 mg/dL (83-110); Potassium 3.9 mmol/L (3.5-5.1); Protein, Total 5.9 g/dL (5.8-8.1); Sodium 137 mmol/L (136-145)
[2023-09-29 09:42] LABS: Prothrombin Time 13.4 sec (12.0-14.7)
[2023-09-29 09:43] LABS: PTT 35.3 sec (22.9-36.1)
[2023-09-29] MEDS ORDERED: HYDROcodone/Acetaminophen 5/325 mg Tablet ONE (09:47)
== END 2023-09-29 10:30 | disposition home or self-care (01) ==
LOC: ERS 08:14
DX: T82.49XA Other complication of vascular dialysis catheter, initial encounter (principal); I12.0 Hypertensive chronic kidney disease with stage 5 chronic kidney disease or end stage renal disease; E11.22 Type 2 diabetes mellitus with diabetic chronic kidney disease; N18.6 End stage renal disease; I25.10 Atherosclerotic heart disease of native coronary artery without angina pectoris; Z99.2 Dependence on renal dialysis; Z79.4 Long term (current) use of insulin; Z79.82 Long term (current) use of aspirin; Z79.84 Long term (current) use of oral hypoglycemic drugs
CPT/HCPCS: 36415; 71045; 80053; 85025; 85610; 85730; 93005

== ENCOUNTER 2023-09-29 18:59 | Emergency (ER) | payer MEDICARE ==
[2023-09-29 20:15] LABS: #Eosinphils 0.1 thou/uL (0.0-0.7); #Monocytes 1.1 thou/uL (0.11-0.59); #Neutrophils 16.3 thou/uL (1.40-6.50); %Basophils 0.2 % (0.0-1.0); %Eosinophils 0.6 % (0.0-10.0); %Lymphocytes 7.4 % (21.0-51.0); %Monocytes 5.6 % (0.0-10.0); %Neutrophils 85.5 % (42.0-75.0); Hematocrit 33.4 % (42.0-52.0); Hemoglobin 10.7 g/dL (14.0-18.0); Mean Corpuscular Hemoglobin 31.5 pg (27.0-31.0); Mean Corpuscular Volume 98.2 fl (78.0-98.0); Mean Platelet Volume 9.8 fL (7.4-10.4); Platelet Count 182 10x3/uL (130-400); RBC Distribution Width 16.7 % (11.5-14.5)
[2023-09-29 20:33] LABS: ALT (SGPT) 7 U/L (8-55); AST (SGOT) 14 U/L (5-34); Albumin 3.2 g/dL (3.4-4.8); Alkaline Phosphatase 126 U/L (40-110); Anion Gap 17 mmol/L (10-20); BUN (Urea Nitrogen) 42 mg/dL (8.4-25.7); Bilirubin, Total 0.5 mg/dL (0.2-1.2); Calc. Creatinine Clearance 0 mL/min (70-130); Calcium 8.2 mg/dL (7.8-10.44); Carbon Dioxide 26 mmol/L (23-31); Chloride 96 mmol/L (98-107); Estimated GFR 6; Globulin 3.1 g/dL (2.4-3.5); Glucose 210 mg/dL (83-110); Protein, Total 6.3 g/dL (5.8-8.1); Sodium 135 mmol/L (136-145)
[2023-09-29] MEDS ORDERED: Lidocaine 1% w/Epinephrine 1:100K 20 ML VIAL ONE (21:43)
== END 2023-09-29 22:03 | disposition home or self-care (01) ==
LOC: ERS 18:59
DX: Z48.00 Encounter for change or removal of nonsurgical wound dressing (principal); I25.10 Atherosclerotic heart disease of native coronary artery without angina pectoris; I12.0 Hypertensive chronic kidney disease with stage 5 chronic kidney disease or end stage renal disease; E11.22 Type 2 diabetes mellitus with diabetic chronic kidney disease; N18.6 End stage renal disease; Z99.2 Dependence on renal dialysis; Z79.899 Other long term (current) drug therapy; Z79.4 Long term (current) use of insulin; Z79.84 Long term (current) use of oral hypoglycemic drugs; T82.49XA Other complication of vascular dialysis catheter, initial encounter; Z79.82 Long term (current) use of aspirin
CPT/HCPCS: 36415; 71045; 80053; 85025; 85610; 85730; 93005; 99284

== ENCOUNTER 2023-10-08 15:08 | Emergency (ER) | payer MEDICARE ==
[2023-10-08] MEDS ORDERED: Ondansetron PF 4 MG/2 ML Vial ONE ×2 (15:14→15:15)
[2023-10-08] MEDS ORDERED: Ketorolac Tromethamine 30 MG (1 mL) VIAL ONE (15:14)
[2023-10-08] MEDS ORDERED: fentaNYL 50 mcg/mL 1 mL Vial ONE (15:14)
== END 2023-10-08 16:05 | disposition home or self-care (01) ==
LOC: MERGE 15:08 → ERS 15:08
DX: S42.201A Unspecified fracture of upper end of right humerus, initial encounter for closed fracture (principal); N18.6 End stage renal disease; Z99.2 Dependence on renal dialysis; W01.0XXA Fall on same level from slipping, tripping and stumbling without subsequent striking against object, initial encounter; Y92.009 Unspecified place in unspecified non-institutional (private) residence as the place of occurrence of the external cause
CPT/HCPCS: 73030; 73060; 96374; 96375; 99283; J3010; J1885; J2405